=== PATIENT | female | born 1985 | race Caucasian/White ===

== ENCOUNTER → 2022-11-09 | Outpatient (CLI) | payer OTHER ==
--- NOTE | 2022-11-09 09:52 | US ---
EXAMINATION TYPE: US abdomen complete DATE OF EXAM: 11/09/2022 COMPARISON: CLINICAL HISTORY: E03.9 hypothyroidism, R14.0 abdominal bloating, R19.8 Altern. Patient states bloati ng and weight gain. TECHNIQUE: Multiple sonographic images of the abdomen are obtained. FINDINGS: EXAM MEASUREMENTS: Liver Length: 18.5 cm Gallbladder Wall: 0.2 cm CBD: 0.3 cm Spleen: 11.6 cm Right Kidney: 9.6 x 4.9 x 3.9 cm Left Kidney: 10.6 x 4.1 x 4.5 cm Pancreas: Tail obscured by overlying bowel gas Liver: Echogenic and coarse. Enlarged in size. Gallbladder: wnl Evidence for sonographic Woodruff's sign: neg CBD: wnl Spleen: wnl Right Kidney: No hydronephrosis or masses seen Left Kidney: No hydronephrosis or masses seen Upper IVC: wnl Abd Aorta: No AAA visualized The intrahepatic portion of the IVC and proximal abdominal aorta are within normal limits. There is no evidence of cholelithiasis. Common bile duct is unremarkable. The visualized portions of the edward creas are homogenous. The spleen is unremarkable. Kidneys are symmetric and free of hydronephrosis. No renal lesions are seen. IMPRESSION: Hepatic steatosis with hepatomegaly noted.
--- NOTE | 2022-11-09 10:00 | US ---
EXAMINATION TYPE: US thyroid st tissue head/neck DATE OF EXAM: 11/09/2022 COMPARISON: NONE CLINICAL HISTORY: E03.9 hypothyroidism. Abnormal labs. On thyroid meds. GLAND SIZE: Right Lobe: 4.3 x 1.6 x 1.5 cm Overall Parenchyma: heterogenous Left Lobe: 3.6 x 1.2 x 1.2 cm Overall Parenchyma: heterogeneous Isthmus Thickness: 0.2 cm NODULES- Bilateral diffusely nodular thyroid with no discrete nodules able to be measured RIGHT: # of nodules measured on right: 0 LEFT: # of nodules measured on left: 0 ISTHMUS: # of nodules measured in the isthmus: 0 Bilateral neck scanned, no evidence of lymphadenopathy. IMPRESSION: Diffuse nonspecific glandular heterogeneity and nodularity 2017 ACR TI-RADS LEVEL: *Highest TI-RADS level nodule reported
== END | disposition home or self-care (01) ==
LOC: RADUSWWP 07:15
PROVIDERS: ATTEND Family Medicine
DX: K76.0 Fatty (change of) liver, not elsewhere classified (principal); E03.9 Hypothyroidism, unspecified; E07.89 Other specified disorders of thyroid; R16.0 Hepatomegaly, not elsewhere classified
CPT/HCPCS: 76536; 76700

== ENCOUNTER → 2023-03-27 | Outpatient (CLI) | payer OTHER ==
[2023-03-28 14:56] LABS: Gliadin AB IgA, Deaminated Negative (Negative); Gliadin AB IgA, Unit <0.5 U/mL; Gliadin AB IgG, Deaminated Negative (Negative); Gliadin AB IgG, Unit <0.4 U/mL
== END | disposition home or self-care (01) ==
LOC: LABWHC1 12:59
PROVIDERS: ATTEND Nurse Practitioner Family
DX: K59.09 Other constipation (principal)
CPT/HCPCS: 36415; 83516; 85652; 86140

== ENCOUNTER → 2023-10-25 | Outpatient (CLI) | payer OTHER ==
--- NOTE | 2023-10-25 11:40 | US ---
EXAMINATION TYPE: US kidneys/renal and bladder DATE OF EXAM: 10/25/2023 COMPARISON: 11/09/2022 CLINICAL INDICATION: Female, 38 years old with history of N39.0 URINARY TRACT INFECTION, SITE NOT SPE CIFIED; Bilateral back and pelvic pain x 1 week; Hx Renal stones with lithotripsy; Hx Constipation EXAM MEASUREMENTS: Right Kidney: 11.3 x 4.5 x 5.4 cm Left Kidney: 11.2 x 4.9 x 5.5 cm Post Void Residual Volume: NA mL Right Kidney: Echogenic areas without shadowing or twinkle throughout , likely prominent vascular re flectors. No hydronephrosis. Left Kidney: Echogenic areas without shadowing or twinkle throughout, likely prominent vascular refle ctors. No hydronephrosis. Bladder: wnl Bilateral Jets seen: Yes Normal Post Void Residual: NA Incidental echogenic hepatic parenchyma suggesting fatty infiltration. IMPRESSION: 1. No hydronephrosis. 2. Incidental echogenic liver parenchyma, suspect at least mild or moderate hepatic steatosis.
== END | disposition home or self-care (01) ==
LOC: RADUSWWP 09:49
PROVIDERS: ATTEND Family Medicine
DX: N39.0 Urinary tract infection, site not specified (principal); K76.89 Other specified diseases of liver
CPT/HCPCS: 76770

== ENCOUNTER 2024-03-29 16:02 | Emergency (ER) | payer OTHER ==
--- NOTE | 2024-03-29 16:30 | ED ---
General Adult HPI - General Source: patient, RN notes reviewed Mode of arrival: ambulatory Limitations: no limitations <Dari Lee - Last Filed: 03/29/24 16:28> <Del Justin - Last Filed: 04/02/24 12:37> - General Chief complaint: Shortness of Breath Stated complaint: CINTHIA Time Seen by Provider: 03/29/24 16:20 - History of Present Illness Initial comments: Quick note: 38-year-old female presents to the emergency department for evaluation of shortness of breath. She states that she has a history of asthma. She notes that she was seen at urgent care prior to this. She has been on 2 courses of steroids without improvement. She does note a recent change in her medication. Her Strattera and Effexor were stopped about a week to 1 and half weeks ago. (Dari Lee) 38-year-old female presenting for evaluation of anxiety and shortness of breath. Patient has been treated twice in the last several weeks for asthma exacerbation. She was put on steroids and antibiotics. Patient admits that she is under a great deal of stress. Tomorrow is her daughter's 18th birthday republican and she has a camping trip planned. She has 8 children that she is currently caring for. She does admit that this is more likely related to stress. She has no cough. No central chest pain. No lower extremity pain or swelling. She states that her Strattera and Effexor were abruptly stopped and symptoms began at this time. She is requesting medication refill. (Del Justin) - Related Data Home Medications Medication Instructions Recorded Confirmed Albuterol Inhaler [Ventolin Hfa 1 - 2 puff INHALATION DIRECTED 05/27/15 05/27/15 Inhaler] PRN Cholecalciferol [Vitamin D3] 1 tab PO DAILY 05/27/15 05/27/15 DULoxetine HCL [Cymbalta] 1 tab PO DAILY 05/27/15 05/27/15 Gabapentin [Neurontin] 1 tab PO TID 05/27/15 05/27/15 Levothyroxine Sodium [Synthroid] 1 tab PO DAILY 05/27/15 05/27/15 Naproxen 1 tab PO BID PRN 05/27/15 05/27/15 Ergocalciferol (Vitamin D2) 50 mcg PO DAILY 02/10/21 02/10/21 [Vitamin D2 (2000 Iu)] Levothyroxine Sodium [Synthroid] 88 mcg PO DAILY 02/10/21 02/10/21 Loratadine [Claritin] 10 mg PO DAILY 02/10/21 02/10/21 Tranexamic Acid [Lysteda] 650 mg PO DIRECTED 02/10/21 02/10/21 buPROPion [Wellbutrin] 100 mg PO DAILY 02/10/21 02/10/21 Previous Rx's Medication Instructions Recorded methylPREDNISolone [Medrol] 1 pack PO DIRECTED #1 tab.ds.pk 05/27/15 Atomoxetine HCl [Strattera] 60 mg PO DAILY 14 Days #14 capsule 03/29/24 Venlafaxine HCl [Effexor] 150 mg PO DAILY 14 Days #28 tab 03/29/24 Allergies Allergy/AdvReac Type Severity Reaction Status Date / Time latex Allergy Rash/Hives Verified 03/29/24 16:21 adhesive tape AdvReac Rash/Hives Verified 03/29/24 16:21 Review of Systems ROS Other: All systems not noted in ROS Statement are negative. <Dari Lee - Last Filed: 03/29/24 16:28> ROS Other: All systems not noted in ROS Statement are negative. <Del Justin - Last Filed: 04/02/24 12:37> ROS Statement: Those systems with pertinent positive or pertinent negative responses have been documented in the HPI. Past Medical History Past Medical History: Asthma, No Reported History, Thyroid Disorder Additional Past Medical History / Comment(s): fibromyalgia, History of Any Multi-Drug Resistant Organisms: None Reported Past Surgical History: Section Additional Past Surgical History / Comment(s): umbilical hernia repair Past Psychological History: No Psychological Hx Reported, ADD/ADHD, Anxiety, Depression, PTSD Smoking Status: Vaper Past Alcohol Use History: Occasional Past Drug Use History: Marijuana <Dari Lee - Last Filed: 03/29/24 16:28> General Exam Limitations: no limitations <Dari Lee - Last Filed: 03/29/24 16:28> General appearance: alert, in no apparent distress, anxious Eye exam: Present: normal appearance, PERRL ENT exam: Present: normal exam Neck exam: Present: normal inspection. Absent: tenderness, meningismus Respiratory exam: Present: normal lung sounds bilaterally. Absent: respiratory distress, wheezes, rales, rhonchi Cardiovascular Exam: Present: regular rate, normal rhythm GI/Abdominal exam: Present: soft. Absent: distended, tenderness Extremities exam: Present: normal inspection Neurological exam: Present: alert, oriented X3 Psychiatric exam: Present: anxious Skin exam: Present: warm, dry, intact <Del Justin - Last Filed: 04/02/24 12:37> - General Exam Comments Initial Comments: Visual Physical Exam Vital signs reviewed General: Well-appearing, nontoxic, no acute distress. Head: Normocephalic, atraumatic Eyes: PERRLA, EOMI ENT: Airway patent Chest: Nonlabored breathing Skin: No visual rash, normal skin tone Neuro: Alert and oriented 3 Musculoskeletal: No gross abnormalities (Dari Lee) Course Vital Signs 03/29/24 03/29/24 03/29/24 16:18 18:12 18:23 Temperature 97.5 F L 97.8 F Pulse Rate 101 H 88 Respiratory 26 H 19 19 Rate Blood Pressure 131/84 143/86 O2 Sat by Pulse 100 98 Oximetry Medical Decision Making <Dari Lee - Last Filed: 03/29/24 16:28> - Lab Data Result diagrams: 03/29/24 16:26 03/29/24 16:26 <Del Justin - Last Filed: 04/02/24 12:37> - Medical Decision Making Quick note preformed and electronically signed by Dari Lee PA-C (Dair Lee) Was pt. sent in by a medical professional or institution ([facility], [employer], urgent care, hospital, or correction...) When possible be specific @ -No Did you speak to anyone other than the patient for history (EMS, parent, family, police, friend...)? What history was obtained from this source @ -No Did you review nursing and triage notes (agree or disagree)? Why? @ -I reviewed and agree with nursing and triage notes Were old charts reviewed (outside hosp., previous admission, EMS record, old EKG, old radiological studies, urgent care reports/EKG's, correction records)? Report findings @ -No old charts were reviewed Differential Dyspnea: Coronary syndrome, arrhythmia, tamponade, asthma, COPD, pulmonary embolism, pneumonia, pneumothorax, pulmonary effusion, anaphylaxis, diabetic ketoacidosis, flailed chest, pulmonary contusion, diaphragmatic rupture, anemia, neuromuscular, this is not meant to be an all-inclusive list. EKG interpreted by me (3pts min.). @Sinus rhythm rate of 92, IL interval 102, QRS duration 97, QTc [address] segment elevation, Q wave and T wave inversion inferiorly, no old for comparison. X-rays interpreted by me (1pt min.). @ -Chest x-ray negative for focal pneumonia, no pneumothorax, question atelectasis at the left lung base. CT interpreted by me (1pt min.). @ -None done U/S interpreted by me (1pt. min.). @ -None done What testing was considered but not performed or refused? (CT, X-rays, U/S, labs)? Why? @ -None What meds were considered but not given or refused? Why? @ -None Did you discuss the management of the patient with other professionals (professionals i.e. , PA, HORTICULTURAL FARMWORKER, lab, RT, psych nurse, case management social worker, learning and development specialist, teacher, unarmed security officer, pillowcase cutter)? Give summary @ -No Was smoking cessation discussed for >3mins.? @ -No Was critical care preformed (if so, how long)? @ -No Were there social determinants of health that impacted care today? How? (Homelessness, low income, unemployed, alcoholism, drug addiction, transportation, low edu. Level, literacy, decrease access to med. care, skilled nursing, rehab)? @ -No Was there de-escalation of care discussed even if they declined (Discuss DNR or withdrawal of care, Hospice)? DNR status @ -No What co-morbidities impacted this encounter? (DM, HTN, Smoking, COPD, CAD, Cancer, CVA, ARF, Chemo, Hep., AIDS, mental health diagnosis, sleep apnea, morbid obesity)? @ -[Asthma Was patient admitted / discharged? Hospital course, mention meds given and route, prescriptions, significant lab abnormalities, going to OR and other pertinent info. @ -38-year-old female presents for evaluation of anxiety and shortness of breath. Upon arrival to the room the patient is resting comfortably. Upon entering the room patient becomes acutely dyspneic. She is visibly anxious. She states she is very stressed and was abruptly taken off of her medications at the onset of the symptoms. Patient's lungs are completely clear to auscultation. She had workup including EKG, chest x-ray, laboratory testing. She has a leukocytosis but is currently on steroids. She has a negative D- dimer, negative troponin. Otherwise unremarkable testing. She is reassured and given a 2-week supply of her medications that were abruptly discontinued including Strattera and Effexor. She is given strict return parameters and will follow closely with her primary care provider. Undiagnosed new problem with uncertain prognosis? @ -No Drug Therapy requiring intensive monitoring for toxicity (Heparin, Nitro, Insulin, Cardizem)? @ -No Were any procedures done? @ -No Diagnosis/symptom? @ - anxiety Acute, or Chronic, or Acute on Chronic? @ -Default Uncomplicated (without systemic symptoms) or Complicated (systemic symptoms)? @ -Default Side effects of treatment? @ -No Exacerbation, Progression, or Severe Exacerbation? @ -No Poses a threat to life or bodily function? How? (Chest pain, USA, MS, pneumonia, PE, COPD, DKA, ARF, appy, cholecystitis, CVA, Diverticulitis, Homicidal, Suicidal, threat to staff... and all critical care pts) @ -No (Del Justin) - Lab Data Lab Results 03/29/24 03/29/24 03/29/24 Range/Units 16:26 16:26 16:26 WBC 14.1 H (3.8-10.6) k/uL RBC 4.57 (3.80-5.40) m/uL Hgb 11.1 L (11.4-16.0) gm/dL Hct 36.6 (34.0-46.0) % MCV 80.0 (80.0-100.0) fL MCH 24.2 L (25.0-35.0) pg MCHC 30.3 L (31.0-37.0) g/dL RDW 17.1 H (11.5-15.5) % Plt Count 267 (150-450) k/uL MPV 9.5 Neutrophils % 89 % Lymphocytes % 10 % Monocytes % 1 % Eosinophils % 0 % Basophils % 0 % Neutrophils # 12.5 H (1.3-7.7) k/uL Lymphocytes # 1.4 (1.0-4.8) k/uL Monocytes # 0.2 (0-1.0) k/uL Eosinophils # 0.0 (0-0.7) k/uL Basophils # 0.0 (0-0.2) k/uL Hypochromasia Moderate Anisocytosis Slight Microcytosis Slight PT 10.4 (10.0-12.5) sec INR 0.9 (<1.2) APTT 25.1 (22.0-30.0) sec D-Dimer 0.27 (<0.60) mg/L FEU Sodium 139 (137-145) mmol/L Potassium 3.8 (3.5-5.1) mmol/L Chloride 108 H (98-107) mmol/L Carbon Dioxide 17 L (22-30) mmol/L Anion Gap 14 mmol/L BUN 14 (7-17) mg/dL Creatinine 0.70 (0.52-1.04) mg/dL Est GFR (CKD-EPI)AfAm >90 (>60 ml/min/1.73 sqM) Est GFR (CKD-EPI)NonAf >90 (>60 ml/min/1.73 sqM) Glucose 239 H (74-99) mg/dL Calcium 9.4 (8.4-10.2) mg/dL Total Bilirubin 0.3 (0.2-1.3) mg/dL AST 18 (14-36) U/L ALT 20 (4-34) U/L Alkaline Phosphatase 107 (38-126) U/L Troponin I (0.000-0.034) ng/mL Total Protein 7.4 (6.3-8.2) g/dL Albumin 4.6 (3.5-5.0) g/dL 03/29/24 Range/Units 16:26 WBC (3.8-10.6) k/uL RBC (3.80-5.40) m/uL Hgb (11.4-16.0) gm/dL Hct (34.0-46.0) % MCV (80.0-100.0) fL MCH (25.0-35.0) pg MCHC (31.0-37.0) g/dL RDW (11.5-15.5) % Plt Count (150-450) k/uL MPV Neutrophils % % Lymphocytes % % Monocytes % % Eosinophils % % Basophils % % Neutrophils # (1.3-7.7) k/uL Lymphocytes # (1.0-4.8) k/uL Monocytes # (0-1.0) k/uL Eosinophils # (0-0.7) k/uL Basophils # (0-0.2) k/uL Hypochromasia Anisocytosis Microcytosis PT (10.0-12.5) sec INR (<1.2) APTT (22.0-30.0) sec D-Dimer (<0.60) mg/L FEU Sodium (137-145) mmol/L Potassium (3.5-5.1) mmol/L Chloride (98-107) mmol/L Carbon Dioxide (22-30) mmol/L Anion Gap mmol/L BUN (7-17) mg/dL Creatinine (0.52-1.04) mg/dL Est GFR (CKD-EPI)AfAm (>60 ml/min/1.73 sqM) Est GFR (CKD-EPI)NonAf (>60 ml/min/1.73 sqM) Glucose (74-99) mg/dL Calcium (8.4-10.2) mg/dL Total Bilirubin (0.2-1.3) mg/dL AST (14-36) U/L ALT (4-34) U/L Alkaline Phosphatase (38-126) U/L Troponin I <0.012 (0.000-0.034) ng/mL Total Protein (6.3-8.2) g/dL Albumin (3.5-5.0) g/dL Disposition <Dari Lee - Last Filed: 03/29/24 16:28> Is patient prescribed a controlled substance at d/c from ED?: No Time of Disposition: 18:10 <Del Justin - Last Filed: 04/02/24 12:37> Clinical Impression: Anxiety Disposition: HOME SELF-CARE Condition: Fair Instructions (If sedation given, give patient instructions): Anxiety (ED) Prescriptions: Venlafaxine HCl [Effexor] 150 mg PO DAILY 14 Days #28 tab Atomoxetine HCl [Strattera] 60 mg PO DAILY 14 Days #14 capsule Referrals: Renetta Guevara MD [Primary Care Provider] - 1-2 days
[2024-03-29 16:43] LABS: Anisocytosis Slight; Basophils % (A) 0 %; Eosinophils % (A) 0 %; HCT 36.6 % (34.0-46.0); HGB 11.1 gm/dL (11.4-16.0); Hypochromasia Moderate; Lymphocytes # (A) 1.4 k/uL (1.0-4.8); Lymphocytes % (A) 10 %; MCH 24.2 pg (25.0-35.0); MCHC 30.3 g/dL (31.0-37.0); Mean Platelet Volume 9.5; Microcytosis Slight; Monocytes # (A) 0.2 k/uL (0-1.0); Monocytes % (A) 1 %; Neutrophils # (A) 12.5 k/uL (1.3-7.7); Neutrophils % (A) 89 %; Platelet Count 267 k/uL (150-450); RBC 4.57 m/uL (3.80-5.40); RDW 17.1 % (11.5-15.5); WBC 14.1 k/uL (3.8-10.6)
[2024-03-29 16:52] LABS: ALT 20 U/L (4-34); AST 18 U/L (14-36); African American GFR (CKD) >90 (>60 ml/min/1.73 sqM); Albumin 4.6 g/dL (3.5-5.0); Alkaline Phosphatase 107 U/L (38-126); Anion Gap 14 mmol/L; Blood Urea Nitrogen 14 mg/dL (7-17); Calcium 9.4 mg/dL (8.4-10.2); Carbon Dioxide 17 mmol/L (22-30); Chloride 108 mmol/L (98-107); Glucose 239 mg/dL (74-99); Non-African American GFR(CKD) >90 (>60 ml/min/1.73 sqM); Potassium 3.8 mmol/L (3.5-5.1); Sodium 139 mmol/L (137-145); Total Bilirubin 0.3 mg/dL (0.2-1.3); Total Protein 7.4 g/dL (6.3-8.2)
[2024-03-29 17:04] LABS: INR 0.9 (<1.2); Partial Thromboplastin Time 25.1 sec (22.0-30.0); Prothrombin Time 10.4 sec (10.0-12.5)
--- NOTE | 2024-03-29 17:33 | XR ---
EXAMINATION TYPE: XR chest 2V DATE OF EXAM: 03/29/2024 COMPARISON: 05/27/2015 HISTORY: Chest pain TECHNIQUE: Frontal and lateral views of the chest are obtained. FINDINGS: There is no focal air space opacity. No evidence for pneumothorax. No pleural effusion. The cardiac silhouette size is within normal limits. The osseous structures are grossly intact. IMPRESSION: 1. No acute cardiopulmonary process.
[2024-03-29 18:28] VITALS: BP 143/86; PULSE 88; RESP 19; TEMP 97.8
== END 2024-03-29 18:28 | disposition home or self-care (01) ==
LOC: EC 16:02
DX: F41.9 Anxiety disorder, unspecified (principal); J45.909 Unspecified asthma, uncomplicated; F17.290 Nicotine dependence, other tobacco product, uncomplicated; Z79.899 Other long term (current) drug therapy; Z91.040 Latex allergy status; Z91.09 Other allergy status, other than to drugs and biological substances
CPT/HCPCS: 36415; 71046; 80053; 84484; 85025; 85379; 85610; 85730; 93005; 99285